=== PATIENT | male | born 1985 | race Caucasian/White ===

== ENCOUNTER 2023-08-15 21:19 | Emergency (ER) | payer SELFPAY ==
[~2023-08-15] VITALS: Ht 177.8 cm; Wt 78.0 kg
[2023-08-15 21:24] VITALS: BP_SYST 127; PULSE 82; RESP 16; TEMP 97.4; O2SAT 100
[2023-08-15 21:57] LABS: BASOPHILS # (AUTO) 0.1 K/uL (0.0-0.2); BASOPHILS % (AUTO) 0.8 % (0.0-2.0); EOSINOPHILS # (AUTO) 0.1 K/uL (0.0-0.4); EOSINOPHILS % (AUTO) 1.3 % (0.0-4.0); HEMATOCRIT 41.5 % (36-54); HEMOGLOBIN 14.7 g/dL (14.0-18.0); LYMPHOCYTES # (AUTO) 2.8 K/uL (1.0-5.5); LYMPHOCYTES % (AUTO) 36.9 % (20.5-51.5); MEAN CORPUSCULAR HEMOGLOBIN 31 pg (27-31); MEAN CORPUSCULAR HGB CONC 35 % (32-36); MEAN CORPUSCULAR VOLUME 88 fL (79.0-98.0); MONOCYTES # (AUTO) 0.6 K/uL (0.0-1.0); MONOCYTES % (AUTO) 7.8 % (1.7-9.3); NEUTROPHILS % (AUTO) 53.2 % (40.0-70.0); PLATELET COUNT (AUTO) 327 K/uL (130-430); RED CELL DISTRIBUTION WIDTH 12.9 % (9.0-15.0); WHITE BLOOD COUNT (AUTO) 7.5 K/uL (4.8-10.8)
[2023-08-15 22:16] LABS: ANION GAP 8 (5-15); CALCIUM 9.3 mg/dL (8.4-11.0); CARBON DIOXIDE 28 mmol/L (23-29); CHLORIDE 104 mmol/L (98-107); CREATININE 1.95 mg/dL (0.55-1.30); GFR AFRICAN AMERICAN 50 mL/min (>90); GLUCOSE 110 mg/dL (74-106); SODIUM SERUM 140 mmol/L (136-145); UREA NITROGEN, BLOOD 19 mg/dL (8-21)
[2023-08-15 22:18] LABS: GFR NON AFRICAN-AMERICAN 42 mL/min (>90)
[2023-08-15 22:28] VITALS: TEMP 98.8
[2023-08-15 23:15] VITALS: BP_SYST 128; PULSE 78; RESP 18; O2SAT 97
== END 2023-08-15 23:15 | disposition home or self-care (01) ==
LOC: SED 21:19
DX: R07.89 Other chest pain (principal); F17.200 Nicotine dependence, unspecified, uncomplicated
CPT/HCPCS: 36415; 80048; 84484; 85025; 85379; 93005; 99284